=== PATIENT | male | born 1980 | race American Indian/Alaskan Native ===

== ENCOUNTER 2017-07-17 12:23 | Inpatient (IN) | payer BC ==
[2017-07-17] MEDS ORDERED: NACL 0.9% 250ML 250 ML IV ONE (12:28)
[2017-07-17] MEDS ORDERED: ZOFRAN IV ONE (12:28)
[2017-07-17] MEDS ORDERED: PEPCID IV ONE (12:29)
--- NOTE | 2017-07-17 13:09 | XRay Report ---
AP CHEST: HISTORY: Short of breath There is moderate cardiomegaly and mild central pulmonary venous congestion which are new since the chest x-ray dated 11/26/15. The lungs are clear. No evidence for infiltrate, pleural effusion or pneumothorax. Single lead pacemaker devices unchanged. IMPRESSION: Cardiomegaly and pulmonary venous congestion.
[2017-07-17 13:15] LABS: Basophils % (Auto) 0.7 % (0.0-1.8); Eosinophils % (Auto) 0.4 % (0.0-4.3); Hematocrit 40.2 % (35.5-45.6); Hemoglobin 13.3 gm/dl (11.8-15.2); Lymphocytes # (Auto) 2.4 K/mm3 (1.2-5.4); Lymphocytes % (Auto) 45.1 % (13.4-35.0); Mean Corpuscular HGB Conc 33 % (32-34); Mean Corpuscular Volume 78 fl (84-94); Monocytes # (Auto) 0.5 K/mm3 (0.0-0.8); Monocytes % (Auto) 9.4 % (0.0-7.3); Platelet Count 180 K/mm3 (140-440); Red Blood Count 5.18 M/mm3 (3.65-5.03); Red Cell Distribution Width 18.1 % (13.2-15.2)
[2017-07-17 13:17] LABS: Mean Corpuscular Hemoglobin 26 pg (28-32)
[2017-07-17 13:24] LABS: BUN/Creatinine Ratio 14; Blood Urea Nitrogen 14 mg/dL (9-20)
[2017-07-17 13:25] LABS: Alanine Aminotransferase 15 units/L (7-56); Albumin 3.8 g/dL (3.9-5); Calcium 8.5 mg/dL (8.4-10.2); Hemolysis Index 4; Lipase 23 units/L (13-60)
[2017-07-17 13:29] LABS: INR 1.13 (0.87-1.13)
[2017-07-17 13:30] LABS: Partial Thromboplastin Time 35.4 Sec. (24.2-36.6)
--- NOTE | 2017-07-17 13:38 | Emergency Department Report ---
ED N/V/D HPI - General Chief complaint: Dizziness Stated complaint: DIZZINESS Time Seen by Provider: 07/17/17 12:27 Source: patient, old records reviewed (cta chest neg for pe 07/01/17. EF 25-30% with grad 2 diasolic dysfunction. Severe LA enlargement, moderate LV enlargement, see report for other findings) Mode of arrival: Wheelchair Limitations: No Limitations - History of Present Illness Initial comments: 36-year-old male with past medical history CHF/nonischemic cardiomyopathy, AICD (currently disabled as per medical record), hypertension, and recent admission with laparoscopic cholecystectomy performed here on July 03 presents to the hospital with complaints of nausea, vomiting, intermittent abdominal pain, shortness of breath. Patient was sent by the surgeon DR Muñiz from the office after he was noted to be short of breath and hypotensive dye his follow-up office visit. Initially his pressure was 90/58 and systolic dropped down to 74 with a heart rate in the 120s. Patient has had nausea, vomiting, with decreased by mouth tolerance for the past 4 days. Patient initially vomiting up yellow vomitus that then became more brown in color. Patient is able to tolerate his medication including a dose of Lasix today but not able to drink much fluids or tolerate much food. He complains of intermittent generalized crampy abdominal pain that is currently absent with no aggravating or alleviating factors reported. Denies diarrhea, melena, hematochezia, fever, current antibiotic use, sick contacts, or recent travel. Patient developed shortness of breath while sleeping and during exertion since last night. No chest pain reported. - Related Data Home Medications Medication Instructions Recorded Confirmed Last Taken Digoxin [Lanoxin] 0.125 mg PO DAILY 05/18/13 07/03/17 07/11/14 19:00 Previous Rx's Medication Instructions Recorded Last Taken Type Carvedilol [Coreg] 12.5 mg PO BID #60 tablet 07/04/17 Unknown Rx Cyclobenzaprine [Flexeril 10 MG 10 mg PO TID PRN #30 tablet 07/04/17 Unknown Rx TAB] Furosemide [Lasix TAB] 40 mg PO QDAY #30 tablet 07/04/17 Unknown Rx Indomethacin [Indocin] 50 mg PO Q8HR #30 capsule 07/04/17 Unknown Rx Losartan [Cozaar] 50 mg PO QDAY #30 tablet 03/07/18 Unknown Rx Spironolactone [Aldactone] 25 mg PO QDAY #30 tablet 07/04/17 Unknown Rx traMADol [Ultram 50 MG tab] 50 mg PO Q6HR PRN #20 tablet 07/04/17 Unknown Rx Allergies Allergy/AdvReac Type Severity Reaction Status Date / Time Penicillins Allergy Unknown Verified 07/17/17 12:30 ED Review of Systems ROS: Stated complaint: DIZZINESS Other details as noted in HPI Comment: All other systems reviewed and negative Other: Constitutional: No fevers chills Eyes: No eye pain visual changes or discharge ENT: No ear pain or throat pain Neck: Denies pain Respiratory: As per HPI Cardiovascular: Denies chest pain, palpitations, syncope GI: As per HPI : Denies dysuria Musculoskeletal: Denies back pain, joint swelling Skin: Denies rash, lesions, erythema Neurologic: Denies headache, numbness, weakness Psychiatric: Denies suicidal ideation, hallucinations Hematological/lymphatic: Denies easy bruising, lymphadenopathy ED Past Medical Hx - Past Medical History Hx Hypertension: No Hx Congestive Heart Failure: Yes Hx Diabetes: No Hx Arthritis: Yes (gout) Hx Dementia: No Additional medical history: non ischemic cardiomyopathy - Surgical History Hx Internal Defibrillator: Yes (06/2017) Additional Surgical History: defibrillator - Social History Smoking Status: Never Smoker Substance Use Type: None - Medications Home Medications: Home Medications Medication Instructions Recorded Confirmed Last Taken Type Digoxin [Lanoxin] 0.125 mg PO DAILY 05/18/13 07/03/17 07/11/14 19:00 History Carvedilol [Coreg] 12.5 mg PO BID #60 tablet 07/04/17 Unknown Rx Cyclobenzaprine [Flexeril 10 MG 10 mg PO TID PRN #30 tablet 07/04/17 Unknown Rx TAB] Furosemide [Lasix TAB] 40 mg PO QDAY #30 tablet 07/04/17 Unknown Rx Indomethacin [Indocin] 50 mg PO Q8HR #30 capsule 07/04/17 Unknown Rx Losartan [Cozaar] 50 mg PO QDAY #30 tablet 07/04/17 Unknown Rx Spironolactone [Aldactone] 25 mg PO QDAY #30 tablet 07/04/17 Unknown Rx traMADol [Ultram 50 MG tab] 50 mg PO Q6HR PRN #20 tablet 07/04/17 Unknown Rx ED Physical Exam - General Limitations: No Limitations - Other Other exam information: General: No limitations, patient is alert in no acute distress Head exam: Atraumatic, normocephalic Eyes exam: Normal appearance, nonicteric sclera ENT: Dry mucous membrane Neck exam: Normal inspection Respiratory exam: No Rales or accessory muscle Cardiovascular: Tachycardic regular rhythm Abdomen: Soft, nondistended, postop laparoscopic scars noted. No signs of infection. Mild periumbilical tenderness, with normal bowel sounds, no rebound , or guarding Extremity: Full range of motion normal inspection no deformity Back: Normal Inspection, full range of motion, no tenderness Neurologic: Alert, oriented x3, cranial nerves intact, no motor or sensory deficit Psychiatric: normal affect, normal mood Skin: Warm, dry, intact ED Course Vital Signs 07/17/17 07/17/17 07/17/17 12:30 13:24 13:30 Temperature 98.2 F Pulse Rate 124 H 65 80 Respiratory 20 18 20 Rate Blood Pressure 108/65 100/64 O2 Sat by Pulse 100 95 99 Oximetry - Reevaluation(s) Reevaluation #1: 07/17/17 13:49 Heart rate 80 after receiving 250 normal saline bolus. EKG will be repeated - Consultations Consultation #1: 07/17/17 13:40 Case discussed with Nova More with cardiology [facility]. Will evaluate patient ED Medical Decision Making - Lab Data Result diagrams: 07/17/17 12:50 07/17/17 12:50 Lab Results 07/17/17 07/17/17 07/17/17 Range/Units 12:50 12:50 12:50 WBC 5.3 (4.5-11.0) K/mm3 RBC 5.18 H (3.65-5.03) M/mm3 Hgb 13.3 (11.8-15.2) gm/dl Hct 40.2 (35.5-45.6) % MCV 78 L (84-94) fl MCH 26 L (28-32) pg MCHC 33 (32-34) % RDW 18.1 H (13.2-15.2) % Plt Count 180 (140-440) K/mm3 Lymph % (Auto) 45.1 H (13.4-35.0) % [place] % (Auto) 9.4 H (0.0-7.3) % Eos % (Auto) 0.4 (0.0-4.3) % Baso % (Auto) 0.7 (0.0-1.8) % Lymph # 2.4 (1.2-5.4) K/mm3 [place] # 0.5 (0.0-0.8) K/mm3 Eos # 0.0 (0.0-0.4) K/mm3 Baso # 0.0 (0.0-0.1) K/mm3 Seg Neutrophils % 44.4 (40.0-70.0) % Seg Neutrophils # 2.4 (1.8-7.7) K/mm3 PT 15.1 H (12.2-14.9) Sec. INR 1.13 (0.87-1.13) APTT 35.4 (24.2-36.6) Sec. Sodium 138 (137-145) mmol/L Potassium 4.3 (3.6-5.0) mmol/L Chloride 99.7 (98-107) mmol/L Carbon Dioxide 25 (22-30) mmol/L Anion Gap 18 mmol/L BUN 14 (9-20) mg/dL Creatinine 1.0 (0.8-1.5) mg/dL Estimated GFR > 60 ml/min BUN/Creatinine Ratio 14 % Glucose 93 (75-100) mg/dL Calcium 8.5 (8.4-10.2) mg/dL Total Bilirubin 1.10 (0.1-1.2) mg/dL AST 32 (5-40) units/L ALT 15 (7-56) units/L Alkaline Phosphatase 36 (35-129) units/L NT-Pro-B Natriuret Pep 2721 H (0-450) pg/mL Total Protein 7.4 (6.3-8.2) g/dL Albumin 3.8 L (3.9-5) g/dL Albumin/Globulin Ratio 1.1 % Lipase 23 (13-60) units/L - EKG Data -: EKG Interpreted by Me (prolonged TX interval) EKG shows normal: axis (-12), QRS complexes (113), ST-T waves (lateral T-wave inversion. No ST elevation HI) Rate: tachycardia (124 junctional tachy) - EKG Data When compared to previous EKG there are: changes noted (sinus previous) 07/17/17 13:56 Repeat EKG reveals sinus rhythm with persistent lateral T-wave inversions Rate 81 - Radiology Data Radiology results: report reviewed (read by radiologist, CXR: cardiomegaly and pulmonary venous congestion) - Medical Decision Making Patient treated with Zofran. Heart rate improved with the ns 250 normal saline bolus. Case discussed with cardiology. We'll admit for CHF exacerbation with N /v. Abdomen nontender Junctional rhythm has resolved a repeat EKG and now reveals sinus with prolonged TX - Differential Diagnosis gastritis, pancreatitis, CHF, PE, infection Critical Care Time: No Critical care attestation.: If time is entered above; I have spent that time in minutes in the direct care of this critically ill patient, excluding procedure time. ED Disposition Clinical Impression: ICD (implantable cardioverter-defibrillator) in place, Dilated cardiomyopathy, CHF exacerbation, Nausea & vomiting, Hx of cholecystectomy Disposition: OP ADMIT IP TO THIS HOSP Is pt being admited?: Yes Condition: Stable Time of Disposition: 13:51 (Dr Calvo/hosp)
--- NOTE | 2017-07-17 14:00 | History and Physical Report ---
History of Present Illness Chief complaint: I feel sick History of present illness: 36 YO Male with Systolic CHF(EF 31%), Obesity, HTN, Gout presents to ED for evaluation. Pt states that he has experienced shortness of breath for the past 3 days with persistent symptoms over the same time period. Pt seen by his surgeon today in the office, and was found to be hypotensive, tachycardic with heart rate around 120, as well as short of breath. Pt instructed to present to ED for evaluation. Pt transported to ED by family. Pt seen and evaluated in ED and found to have evidence of CHF Decompensation. Pt acknowledges orthopnea, PND, bilateral leg swelling, decreased oral intake, and decreased exercise tolerance over the past week. Pt denies fever, chills, CP, Palpitations, syncope , BRBPR, melena, Hemopthsis, trauma, skin rash, productive cough, or recent ill contacts. Pt admitted to telemetry, Cardiology consulted in ED. Past History Past Medical History: heart failure, other (gout, obesity) Past Surgical History: Other (ICD Placement) Social history: single. denies: smoking, alcohol abuse, prescription drug abuse Family history: no significant family history Medications and Allergies Allergies Allergy/AdvReac Type Severity Reaction Status Date / Time Penicillins Allergy Unknown Verified 07/17/17 12:30 Home Medications Medication Instructions Recorded Confirmed Last Taken Type Digoxin [Lanoxin] 0.125 mg PO DAILY 05/18/13 07/17/17 07/11/14 19:00 History Carvedilol [Coreg] 12.5 mg PO BID #60 tablet 07/04/17 07/17/17 Unknown Rx Cyclobenzaprine [Flexeril 10 MG 10 mg PO TID PRN #30 tablet 07/04/17 07/17/17 Unknown Rx TAB] Furosemide [Lasix TAB] 40 mg PO QDAY #30 tablet 07/04/17 07/17/17 Unknown Rx Indomethacin [Indocin] 50 mg PO Q8HR #30 capsule 07/04/17 07/17/17 Unknown Rx Losartan [Cozaar] 50 mg PO QDAY #30 tablet 07/04/17 07/17/17 Unknown Rx Spironolactone [Aldactone] 25 mg PO QDAY #30 tablet 07/04/17 07/17/17 Unknown Rx traMADol [Ultram 50 MG tab] 50 mg PO Q6HR PRN #20 tablet 07/04/17 07/17/17 Unknown Rx Review of Systems Constitutional: no weight loss, no weight gain, no fever, no chills Ears, nose, mouth and throat: no ear pain, no ear discharge, no tinnitis, no decreased hearing, no nose pain Cardiovascular: orthopnea, shortness of breath, paroxysmal nocturnal dyspnea, leg edema, no chest pain Respiratory: no cough, no cough with sputum, no excessive sputum Gastrointestinal: no nausea, no vomiting, no diarrhea, no constipation Genitourinary Male: no hematuria, no flank pain, no discharge, no urinary frequency, no urinary hesitancy, no nocturia Rectal: no pain, no incontinence, no bleeding Musculoskeletal: no neck stiffness, no neck pain, no shooting arm pain, no arm numbness/tingling, no low back pain, no shooting leg pain Integumentary: no rash, no pruritis, no redness, no sores Neurological: no transient paralysis, no paralysis, no weakness, no parathesias , no numbness, no tingling, no seizures, no syncope Psychiatric: no anxiety, no memory loss, no change in sleep habits, no sleep disturbances, no insomnia, no hypersomnia, no change in appetite, no change in libido Endocrine: no cold intolerance, no heat intolerance, no polyphagia, no excessive thirst, no polydipsia, no polyuria, no nocturia, no excessive sweating Hematologic/Lymphatic: no easy bruising, no easy bleeding, no lymphadenopathy, no lymphedema Allergic/Immunologic: no urticaria, no allergic rhinitis, no wheezing Exam - Constitutional Vitals: Temp Pulse Resp BP Pulse Ox 98.2 F 80 20 100/64 99 07/17/17 12:30 07/17/17 13:30 07/17/17 13:30 07/17/17 13:30 07/17/17 13:30 General appearance: Present: mild distress - EENT Eyes: Present: PERRL ENT: hearing intact, clear oral mucosa - Neck Neck: Present: supple, normal ROM - Respiratory Respiratory effort: labored Respiratory: bilateral: diminished, rales - Cardiovascular Heart Sounds: Present: S1 & S2. Absent: rub, click - Extremities Extremities: pulses symmetrical, No edema Extremity abnormal: edema Peripheral Pulses: within normal limits - Abdominal General gastrointestinal: Present: soft, non-tender, non-distended, normal bowel sounds Male genitourinary: Present: normal - Integumentary Integumentary: Present: clear, warm, dry - Musculoskeletal Musculoskeletal: generalized weakness - Psychiatric Psychiatric: appropriate mood/affect, intact judgment & insight - Neurologic Neurologic: CNII-XII intact, moves all extremities Results - Labs CBC & Chem 7: 07/17/17 12:50 07/17/17 12:50 Labs: Abnormal lab results 07/17/17 07/17/17 07/17/17 Range/Units 12:50 12:50 12:50 RBC 5.18 H (3.65-5.03) M/mm3 MCV 78 L (84-94) fl MCH 26 L (28-32) pg RDW 18.1 H (13.2-15.2) % Lymph % (Auto) 45.1 H (13.4-35.0) % [place] % (Auto) 9.4 H (0.0-7.3) % PT 15.1 H (12.2-14.9) Sec. NT-Pro-B Natriuret Pep 2721 H (0-450) pg/mL Albumin 3.8 L (3.9-5) g/dL Assessment and Plan - Patient Problems (1) CHF exacerbation Current Visit: Yes Status: Acute Qualifiers: Heart failure type: systolic Qualified Code(s): I50.23 - Acute on chronic systolic (congestive) heart failure Plan to address problem: Afterload reduction, cardiology consulted in ED, Admit to telemetry, strict I/O , monitor uop q shift, diuresis, d dimer, CTA chest, (2) Acute respiratory failure Current Visit: Yes Status: Acute Qualifiers: Respiratory failure complication: hypoxia Qualified Code(s): J96.01 - Acute respiratory failure with hypoxia Plan to address problem: Supplemental oxygen, nebs, d dimer, CTA chest, NIPPV as clinically indicated. (3) Gout Current Visit: Yes Status: Chronic Plan to address problem: continue current care, no acute exacerbation at this time. (4) Obesity Current Visit: Yes Status: Acute Qualifiers: Obesity type: due to excess calories Plan to address problem: increased physical activity, balanced diet, (5) DVT prophylaxis Current Visit: Yes Status: Acute Plan to address problem: SCD to BLE while in bed,
[2017-07-17] MEDS ORDERED: ULTRAM PO PRN (14:01)
[2017-07-17] MEDS ORDERED: TYLENOL PO PRN (14:02)
[2017-07-17] MEDS ORDERED: ZOFRAN IV PRN (14:02)
[2017-07-17] MEDS ORDERED: SODIUM CHLORIDE FLUSH SYRINGE 10 ML IV PRN (14:02)
[2017-07-17] MEDS ORDERED: PROVENTIL IH PRN (14:02)
[2017-07-17] MEDS ORDERED: FLEXERIL PO PRN (14:30)
--- NOTE | 2017-07-17 18:03 | Cat Scan Report ---
FINAL REPORT EXAM: CT ANGIO CHEST HISTORY: dypsnea TECHNIQUE: CTA of the chest was performed after the administration of intravenous contrast. Reconstructions were included in the coronal and sagittal planes. Rotating MIPS were included. PRIORS: CTA of the chest from 07/01/2017. FINDINGS: Pulmonary arteries and thoracic aorta: The study is adequate for diagnostic purposes. No central or segmental pulmonary embolism. The thoracic aorta is normal in caliber. Lungs and airways: No pleural effusion. Mild bilateral dependent atelectasis is seen. There is a focal rounded patchy area of ground-glass in the anterior aspect of the left lung apex. The airways are patent. No bronchiectasis. No pulmonary nodules or masses. Mediastinum, heart, pericardium: No mediastinal lymphadenopathy. Unchanged multi chamber cardiac enlargement. Unchanged left chest AICD. No pericardial effusion. Thoracic inlet, chest wall, axilla: No chest wall masses. The visualized portions of the thyroid gland demonstrate no focal lesion. Bilateral axillary lymph nodes are likely reactive. Upper abdomen: Post cholecystectomy. Bones: No acute or chronic osseous finding. IMPRESSION: 1. No central or segmental pulmonary embolism. 2. Unchanged multi chamber cardiac enlargement. 3. Small rounded focal ground-glass opacity in the anterior aspect of the left upper lobe may represent a focus of inflammation or infection. Recommend follow-up chest CT 3-6 months to confirm resolution.
[2017-07-17] MEDS: COREG PO SCH (21:50)
[2017-07-17] MEDS: SODIUM CHLORIDE FLUSH SYRINGE 10 ML IV SCH (21:56)
[2017-07-17] MEDS: INDOCIN PO SCH (22:07)
[2017-07-17] MEDS: LASIX IV SCH (22:08)
[2017-07-18] MEDS: INDOCIN PO SCH ×2 (05:15→05:16)
[2017-07-18] MEDS: LASIX IV SCH (05:15)
[2017-07-18] MEDS: COREG PO SCH (09:01)
[2017-07-18] MEDS: SODIUM CHLORIDE FLUSH SYRINGE 10 ML IV SCH (09:02)
--- NOTE | 2017-07-18 09:02 | Consultation ---
History of Present Illness Consult date: 07/18/17 Requesting physician: YAHIR LOCKHART Consult reason: congestive heart failure History of present illness: The patient is a 36 year old male who is followed by Dr. Resendez in the office with a history of dilated NICMP, AICD in situ (at [facility] and currently deactivated) , HTN, gout who was at his surgeon's office for a follow up appointment yesterday and his blood pressure was 90/58 initially but dropped to 74 systolic with a heart rate in the 120s and was referred to the ER for further evaluation. Initially he had complaints of nausea, dizziness and shortness of breath. No chest pain. He is s/p laparoscopic cholecystectomy on 07/03/17. D- dimer elevated but chest CTA negative for PE. BNP 2721. Echo done 02/2014 showed EF 35-40%, mild LVH, restrictive diastolic filling, RV mildly dilated, pacemaker in RV, LA enlarged, minimal MR, mild TR. Currently he states his shortness of breath has resolved. Past History Past Medical History: heart failure, hypertension, other (gout, obesity, NICMP) Past Surgical History: cholecystectomy, Other (ICD Placement) Social history: single. denies: smoking, alcohol abuse, prescription drug abuse Family history: no significant family history Medications and Allergies Allergies Allergy/AdvReac Type Severity Reaction Status Date / Time Penicillins Allergy Unknown Verified 07/17/17 12:30 Home Medications Medication Instructions Recorded Confirmed Last Taken Type Digoxin [Lanoxin] 0.125 mg PO DAILY 05/18/13 07/17/17 07/11/14 19:00 History Carvedilol [Coreg] 12.5 mg PO BID #60 tablet 07/04/17 07/17/17 Unknown Rx Cyclobenzaprine [Flexeril 10 MG 10 mg PO TID PRN #30 tablet 07/04/17 07/17/17 Unknown Rx TAB] Furosemide [Lasix TAB] 40 mg PO QDAY #30 tablet 07/04/17 07/17/17 Unknown Rx Indomethacin [Indocin] 50 mg PO Q8HR #30 capsule 07/04/17 07/17/17 Unknown Rx Losartan [Cozaar] 50 mg PO QDAY #30 tablet 07/04/17 07/17/17 Unknown Rx Spironolactone [Aldactone] 25 mg PO QDAY #30 tablet 07/04/17 07/17/17 Unknown Rx traMADol [Ultram 50 MG tab] 50 mg PO Q6HR PRN #20 tablet 07/04/17 07/17/17 Unknown Rx Active Meds: Active Medications Acetaminophen (Tylenol) 650 mg PO Q4H PRN PRN Reason: Pain MILD(1-3)/Fever >100.5/CLEANING Albuterol (Proventil) 2.5 mg IH Q4HRT PRN PRN Reason: Shortness Of Breath Carvedilol (Coreg) 12.5 mg PO BID [facility] Last Admin: 07/17/17 21:50 Dose: 12.5 mg Cyclobenzaprine HCl (Flexeril) 10 mg PO TID PRN PRN Reason: Muscle Spasm Digoxin (Lanoxin) 0.125 mg PO DAILY [facility] Furosemide (Lasix) 20 mg IV BID@0600,1800 [facility] Last Admin: 07/18/17 05:15 Dose: 20 mg Indomethacin (Indocin) 50 mg PO Q8HR [facility] Last Admin: 07/18/17 05:16 Dose: Not Given Losartan Potassium (Cozaar) 50 mg PO QDAY [facility] Ondansetron HCl (Zofran) 4 mg IV Q8H PRN PRN Reason: Nausea And Vomiting Sodium Chloride (Sodium Chloride Flush Syringe 10 Ml) 10 ml IV BID [facility] Last Admin: 07/17/17 21:56 Dose: 10 ml Sodium Chloride (Sodium Chloride Flush Syringe 10 Ml) 10 ml IV PRN PRN PRN Reason: LINE FLUSH Spironolactone (Aldactone) 25 mg PO QDAY [facility] Tramadol HCl (Ultram) 50 mg PO Q6HR PRN PRN Reason: Pain Review of Systems Constitutional: no fever, no chills Ears, nose, mouth and throat: no nasal congestion, no nasal discharge, no sinus pressure Cardiovascular: shortness of breath Gastrointestinal: nausea, no abdominal pain, no vomiting, no diarrhea Genitourinary Male: no dysuria, no hematuria Musculoskeletal: no neck stiffness, no neck pain, no myalgias Integumentary: no rash, no pruritis Neurological: no parathesias, no numbness, no tingling, no headaches Endocrine: no cold intolerance, no heat intolerance Hematologic/Lymphatic: no easy bruising, no easy bleeding Allergic/Immunologic: no urticaria, no wheezing Physical Examination Vital Signs Temp Pulse Resp BP Pulse Ox 98.2 F 124 H 20 108/65 100 07/17/17 12:30 07/17/17 12:30 07/17/17 12:30 07/17/17 12:30 07/17/17 12:30 General appearance: no acute distress HEENT: Positive: Normocephaly, Mucus Membranes Moist Neck: Positive: neck supple, trachea midline Cardiac: Positive: Reg Rate and Rhythm, S1/S2, Systolic Murmur Lungs: Positive: clear to auscultation Neuro: Positive: Grossly Intact Abdomen: Positive: Soft, Active Bowel Sounds. Negative: Tender Skin: Positive: Clear. Negative: Rash Extremities: Present: normal. Absent: edema Results 07/17/17 12:50 07/17/17 12:50 Cardiac Enzymes 07/17/17 Range/Units 12:50 AST 32 (5-40) units/L Coagulation 07/17/17 Range/Units 12:50 PT 15.1 H (12.2-14.9) Sec. INR 1.13 (0.87-1.13) APTT 35.4 (24.2-36.6) Sec. CBC 07/17/17 Range/Units 12:50 WBC 5.3 (4.5-11.0) K/mm3 RBC 5.18 H (3.65-5.03) M/mm3 Hgb 13.3 (11.8-15.2) gm/dl Hct 40.2 (35.5-45.6) % Plt Count 180 (140-440) K/mm3 Lymph # 2.4 (1.2-5.4) K/mm3 [place] # 0.5 (0.0-0.8) K/mm3 Eos # 0.0 (0.0-0.4) K/mm3 Baso # 0.0 (0.0-0.1) K/mm3 Comprehensive Metabolic Panel 07/17/17 Range/Units 12:50 Sodium 138 (137-145) mmol/L Potassium 4.3 (3.6-5.0) mmol/L Chloride 99.7 (98-107) mmol/L Carbon Dioxide 25 (22-30) mmol/L BUN 14 (9-20) mg/dL Creatinine 1.0 (0.8-1.5) mg/dL Glucose 93 (75-100) mg/dL Calcium 8.5 (8.4-10.2) mg/dL AST 32 (5-40) units/L ALT 15 (7-56) units/L Alkaline Phosphatase 36 (35-129) units/L Total Protein 7.4 (6.3-8.2) g/dL Albumin 3.8 L (3.9-5) g/dL - Imaging and Cardiology Echo: report reviewed (02/2014: EF 35-40%, mild LVH, restrictive diastolic filling, RV mildly dilated, pacemaker in RV, LA enlarged, minimal MR, mild TR ) EKG: image reviewed EKG interpretations - Telemetry EKG Rhythm: Sinus Rhythm - EKG Sinus rhythms and dysrhythmias: sinus rhythm Repolarization changes or abnormalities: nonspecific abnormality, ST segment, and/or T wave Assessment and Plan Assessment: Acute on chronic systolic heart failure Dilated NICMP AICD in situ -device at [facility] and currently deactivated Elevated DDimer - Chest CTA negative for PE S/p laparoscopic cholecystectomy 07/03/17 HTN Plan: Clinically improving. Agree with current regimen. Will obtain echocardiogram as patient has not had one since 2013. Patient continues to decline [employer] but states that he will follow up with EP as an outpatient regarding generator exchange. Follow up appointment with Dr. Resendez in the [place] office on 07/25/17 at 1:00 pm. The patient has been seen in conjunction with Dr. Shi who agrees with the assessment and plan of care.
[2017-07-18 09:34] VITALS: BP 105/74
[2017-07-18] MEDS ORDERED: ALDACTONE PO SCH (10:00)
[2017-07-18] MEDS ORDERED: COZAAR PO SCH (10:00)
[2017-07-18] MEDS ORDERED: LANOXIN PO SCH (10:00)
[2017-07-18] MEDS ORDERED: COLCRYS PO SCH (11:00)
--- NOTE | 2017-07-18 11:45 | Discharge Summary ---
Providers - Providers Date of Admission: 07/17/17 14:02 Attending physician: FORREST FORBES MD 07/17/17 13:40 Consult to Physician [CONS] Urgent Comment: Consulting Provider: JC MENDEZ Physician Instructions: Reason For Exam: chf exacerbation, n,v, postop Primary care physician: LILIANA BALIEY MD Hospitalization Condition: Stable Hospital course: 36 YO Male with Systolic CHF(EF 31%), Obesity, HTN, Gout presents to ED for evaluation. Pt states that he has experienced shortness of breath for the past 3 days with persistent symptoms over the same time period. Pt seen by his surgeon today in the office, and was found to be hypotensive, tachycardic with heart rate around 120, as well as short of breath. Pt instructed to present to ED for evaluation. Pt transported to ED by family. Pt seen and evaluated in ED and found to have evidence of CHF Decompensation. Pt acknowledges orthopnea, PND, bilateral leg swelling, decreased oral intake, and decreased exercise tolerance over the past week. Pt denies fever, chills, CP, Palpitations, syncope , BRBPR, melena, Hemopthsis, trauma, skin rash, productive cough, or recent ill contacts. Pt admitted to telemetry, Cardiology consulted in ED. Disposition: DC-01 TO HOME OR SELFCARE Exam - Constitutional Vitals: Temp Pulse Resp BP Pulse Ox 97.3 F L 68 18 105/74 99 07/18/17 09:33 07/18/17 09:33 07/18/17 09:33 07/18/17 09:33 07/18/17 11:36 Plan Activity: advance as tolerated, fall precautions Diet: low salt Special Instructions: record daily BP diary Follow up with: LILIANA BAILEY MD [Primary Care Provider] - 3-5 Days BINA ANNE MD [Staff Physician] - 7 Days
== END 2017-07-18 13:45 | disposition home or self-care (01) | DRG 291 ==
LOC: ED 12:23 → 4A 14:02
PROVIDERS: ADMIT Internal Medicine; ATTEND Internal Medicine
DX: I11.0 Hypertensive heart disease with heart failure (principal); J96.01 Acute respiratory failure with hypoxia; I50.23 Acute on chronic systolic (congestive) heart failure; I42.0 Dilated cardiomyopathy; M10.9 Gout, unspecified; E66.9 Obesity, unspecified; I95.9 Hypotension, unspecified; Z95.810 Presence of automatic (implantable) cardiac defibrillator; Z88.0 Allergy status to penicillin; Z90.49 Acquired absence of other specified parts of digestive tract
CPT/HCPCS: 36415; 71045; 71275; 80053; 80162; 83690; 83880; 85025; 85379; 85610; 85730; 93005; 93010; 93970; 94760; 96374; 96375; J1940; J2405; J7050; Q9967

== ENCOUNTER 2018-01-20 00:07 | Emergency (ER) | payer BC ==
[2018-01-20] MEDS ORDERED: TYLENOL PO ONE (01:40)
[2018-01-20 02:05] LABS: Basophils # (Auto) 0.1 K/mm3 (0.0-0.1); Basophils % (Auto) 0.9 % (0.0-1.8); Eosinophils # (Auto) 0.1 K/mm3 (0.0-0.4); Eosinophils % (Auto) 1.2 % (0.0-4.3); Hematocrit 42.5 % (35.5-45.6); Hemoglobin 14.4 gm/dl (11.8-15.2); Lymphocytes # (Auto) 2.7 K/mm3 (1.2-5.4); Lymphocytes % (Auto) 43.3 % (13.4-35.0); Mean Corpuscular HGB Conc 34 % (32-34); Mean Corpuscular Hemoglobin 27 pg (28-32); Mean Corpuscular Volume 78 fl (84-94); Monocytes # (Auto) 0.7 K/mm3 (0.0-0.8); Platelet Count 216 K/mm3 (140-440); Red Blood Count 5.44 M/mm3 (3.65-5.03)
[2018-01-20 02:25] LABS: Alanine Aminotransferase 13 units/L (7-56)
[2018-01-20 03:30] LABS: BUN/Creatinine Ratio 18; Blood Urea Nitrogen 14 mg/dL (9-20); Calcium 8.7 mg/dL (8.4-10.2); Hemolysis Index 6
[2018-01-20 05:28] VITALS: BP 121/82
[2018-01-20] MEDS ORDERED: NORCO 5/325 PO ONE (09:21)
--- NOTE | 2018-01-20 09:24 | Emergency Department Report ---
Chief Complaint: Extremity Injury, Lower Stated Complaint: RT LEG PAIN Time Seen by Provider: 01/20/18 08:59 - HPI History of Present Illness: 37-year-old Nigerien male presents to the emergency department with complaint of a one-week history of right knee pain and swelling. He was previously seen at [facility] and allegedly had his knee drained at that time. The symptoms have not improved. He has tried some indomethacin for his discomfort without much relief. He has a past medical history of gout, CHF, hypertension, nonischemic cardiomyopathy. Patient presents with a low-grade fever and says that he has felt slightly feverish lately. He denies any cough, sore throat, shortness of breath, rash. No recent travel, immobility, surgery or any sick contacts at home. - ROS Review of Systems: Positive for right knee pain and swelling, fever Negative for shortness of breath, chest pain, back pain, nausea - Exam Vital Signs: Vital Signs 01/20/18 01/20/18 01:37 05:27 Temperature 100.2 F H 98.2 F Pulse Rate 88 82 Respiratory 18 20 Rate Blood Pressure 121/82 Blood Pressure 121/73 [Left] O2 Sat by Pulse 100 100 Oximetry Physical Exam: Right anterior knee is swollen. The patient has difficulty with full extension of the right knee. Negative anterior and posterior drawer test. No laxity with valgus or varus stress. Heart and lungs sounds are normal to auscultation. MSE screening note: Focused history and physical exam performed. Due to findings the following was ordered: I have added a uric acid level to the rest of the labs. CBC and BMP were unremarkable. He will have an x-ray of the right knee and a right lower extremity venous Doppler. He has been given a [place] for discomfort and previously was given some acetaminophen for his fever. ED Medical Decision Making - Lab Data Result diagrams: 01/20/18 01:47 01/20/18 01:47 ED Disposition for MSE Condition: Stable Referrals: PRIMARY CARE, [Primary Care Provider] - 3-5 Days
--- NOTE | 2018-01-20 10:15 | Emergency Department Report ---
ED Lower Extremity HPI - General Chief Complaint: Extremity Injury, Lower Stated Complaint: RT LEG PAIN Time Seen by Provider: 01/20/18 08:59 Source: patient, family Mode of arrival: Ambulatory Limitations: No Limitations - History of Present Illness Initial Comments: This is a 37-year-old male nontoxic, well nourished in appearance, no acute signs of distress presents to the ED with c/o of right knee pain and swelling 1 week. Patient stated he was seen in [facility] and allegedly has his knee drained at that time. Patient stated that symptoms has not improved. Patient denies following up with a orthopedic. Patient denies any trauma. Patient stated that he tried indomethacin with no significant relief. Patient denies any numbness, tingling, nausea, vomiting, chest pain, shortness of breath , headache, stiff neck. Patient stated had some fever this morning. Patient denies any joint redness. Patient denies decreased range of motion. Patient stated has decreased gait due to pain. Patient stated allergies to PCN. PMH includes gout, CHF, hypertension, MD Complaint: knee injury -: week(s) (1) Injury: Knee: Right Severity: mild Severity scale (0 -10): 8 Improves With: immobilization Worsens With: weight bearing, movement, palpation Associated Symptoms: swelling, able to partially bear weight, ambulatory. denies: snap/pop sensation, numbness, tingling, unable to bear weight - Related Data Home Medications Medication Instructions Recorded Confirmed Last Taken Digoxin [Lanoxin] 0.125 mg PO DAILY 05/18/13 07/17/17 07/11/14 19:00 Previous Rx's Medication Instructions Recorded Last Taken Type Carvedilol [Coreg] 12.5 mg PO BID #60 tablet 07/04/17 Unknown Rx Cyclobenzaprine [Flexeril 10 MG 10 mg PO TID PRN #30 tablet 07/04/17 Unknown Rx TAB] Furosemide [Lasix TAB] 40 mg PO QDAY #30 tablet 07/04/17 Unknown Rx Indomethacin [Indocin] 50 mg PO Q8HR #30 capsule 07/04/17 Unknown Rx Losartan [Cozaar] 50 mg PO QDAY #30 tablet 07/04/17 Unknown Rx Spironolactone [Aldactone] 25 mg PO QDAY #30 tablet 07/04/17 Unknown Rx traMADol [Ultram 50 MG tab] 50 mg PO Q6HR PRN #20 tablet 07/04/17 Unknown Rx Acetaminophen/Codeine [Tylenol 1 tab PO Q6H PRN #12 tab 01/20/18 Unknown Rx /Codeine # 3 tab] Ibuprofen [Motrin] 600 mg PO Q8H PRN #30 tablet 01/20/18 Unknown Rx Allergies Allergy/AdvReac Type Severity Reaction Status Date / Time Penicillins Allergy Unknown Verified 07/17/17 12:30 ED Review of Systems ROS: Stated complaint: RT LEG PAIN Other details as noted in HPI Constitutional: denies: chills, fever Eyes: denies: eye pain, eye discharge, vision change ENT: denies: ear pain, throat pain Respiratory: denies: cough, shortness of breath, wheezing Cardiovascular: denies: chest pain, palpitations Endocrine: no symptoms reported Gastrointestinal: denies: abdominal pain, nausea, diarrhea Genitourinary: denies: urgency, dysuria Musculoskeletal: arthralgia. denies: back pain, joint swelling Skin: denies: rash, lesions Neurological: denies: headache, weakness, paresthesias Psychiatric: denies: anxiety, depression Hematological/Lymphatic: denies: easy bleeding, easy bruising ED Past Medical Hx - Past Medical History Hx Hypertension: Yes Hx Congestive Heart Failure: Yes Hx Diabetes: No Hx Arthritis: Yes (gout) Hx Dementia: No Additional medical history: non ischemic cardiomyopathy - Surgical History Hx Open Heart Surgery: Yes Hx Internal Defibrillator: Yes (06/2017) Hx Cholecystectomy: Yes Additional Surgical History: defibrillator - Social History Smoking Status: Never Smoker Substance Use Type: None - Medications Home Medications: Home Medications Medication Instructions Recorded Confirmed Last Taken Type Digoxin [Lanoxin] 0.125 mg PO DAILY 05/18/13 07/17/17 07/11/14 19:00 History Carvedilol [Coreg] 12.5 mg PO BID #60 tablet 07/04/17 07/17/17 Unknown Rx Cyclobenzaprine [Flexeril 10 MG 10 mg PO TID PRN #30 tablet 07/04/17 07/17/17 Unknown Rx TAB] Furosemide [Lasix TAB] 40 mg PO QDAY #30 tablet 07/04/17 07/17/17 Unknown Rx Indomethacin [Indocin] 50 mg PO Q8HR #30 capsule 03/07/18 03/20/18 Unknown Rx Losartan [Cozaar] 50 mg PO QDAY #30 tablet 07/04/17 07/17/17 Unknown Rx Spironolactone [Aldactone] 25 mg PO QDAY #30 tablet 07/04/17 07/17/17 Unknown Rx traMADol [Ultram 50 MG tab] 50 mg PO Q6HR PRN #20 tablet 07/04/17 07/17/17 Unknown Rx Acetaminophen/Codeine [Tylenol 1 tab PO Q6H PRN #12 tab 01/20/18 Unknown Rx /Codeine # 3 tab] Ibuprofen [Motrin] 600 mg PO Q8H PRN #30 tablet 01/20/18 Unknown Rx ED Physical Exam - General Limitations: No Limitations General appearance: alert, in no apparent distress - Head Head exam: Present: atraumatic, normocephalic - Eye Eye exam: Present: normal appearance - ENT ENT exam: Present: normal exam, mucous membranes moist - Neck Neck exam: Present: normal inspection, full ROM. Absent: tenderness, meningismus, lymphadenopathy - Respiratory Respiratory exam: Present: normal lung sounds bilaterally. Absent: respiratory distress - Cardiovascular Cardiovascular Exam: Present: regular rate, normal rhythm. Absent: systolic murmur, diastolic murmur, rubs, gallop - GI/Abdominal GI/Abdominal exam: Present: soft, normal bowel sounds - Rectal Rectal exam: Present: deferred - Extremities Exam Extremities exam: Present: normal inspection, full ROM, tenderness, normal capillary refill, joint swelling. Absent: calf tenderness - Expanded Lower Extremity Exam Right Hip exam: Present: normal inspection, full ROM. Absent: tenderness, swelling Upper Leg exam: Present: normal inspection, full ROM. Absent: tenderness, swelling Knee exam: Present: normal inspection, full ROM, tenderness, swelling, full knee extension. Absent: abrasion, laceration, ecchymosis, deformity, crepidus, dislocation, erythema, effusion, pain w/ pronation/supination, posterior draw sign, pain/laxity with valgus, pain/laxity with varus Lower Leg exam: Present: normal inspection, full ROM. Absent: tenderness, swelling Ankle exam: Present: normal inspection, full ROM. Absent: tenderness, swelling Foot/Toe exam: Present: normal inspection, full ROM. Absent: tenderness, swelling Neuro vascular tendon exam: Present: no vascular compromise. Absent: pulse deficit, abnormal cap refill, motor deficit, sensory deficit, tendon deficit, extremity cold to touch, pallor, abnormal 2-point discrimination, decreased fine /light touch, foot drop, peroneal nerve deficit, significant pain with passive ROM of distal joint Gait: Positive: observed and limited by pain - Back Exam Back exam: Present: normal inspection, full ROM - Neurological Exam Neurological exam: Present: alert, oriented X3, normal gait - Psychiatric Psychiatric exam: Present: normal affect, normal mood - Skin Skin exam: Present: warm, dry, intact, normal color. Absent: rash ED Course Vital Signs 01/20/18 01/20/18 01:37 05:27 Temperature 100.2 F H 98.2 F Pulse Rate 88 82 Respiratory 18 20 Rate Blood Pressure 121/82 Blood Pressure 121/73 [Left] O2 Sat by Pulse 100 100 Oximetry - Reevaluation(s) Reevaluation #1: 01/20/18 10:17 Patient is speaking in full sentences with no signs of distress noted. - Consultations Consultation #1: 01/20/18 10:22 Patient has been consulted with Dr. Ibarra about patient history, physical exam, and labs/US doppler and examined and screened patient and agrees to ED plan of care. ED Lower Extremity MDM - Lab Data Result diagrams: 01/20/18 01:47 01/20/18 01:47 - Medical Decision Making This is a 37-year-old male that presents with right knee strain vs. gout. Patient is stable and was examined by me and Dr. Ibarra. I referred patient to an orthopedic doctor for further evaluation for possible MRI. X-ray has been obtained and dictated by the radiologist. Patient is notified of the x-ray report with noted by the patient. Negative doppler for DVT/SVT. Labs unremarkable. Elevated Uric acid. Patient does have normal gait with no tenderness. No ecchymosis. no joint redness or swelling. Not warm to touch. No signs of cellulites present. Patient received a knee mobilizer and crutches at discharge. Patient was educated by RN and use crutches. Patient was instructed to RICE therapy. Vital signs within normal limits. Patient is discharged with Motrin and and RTylenol with codeine. At time of discharge, the patient does not seem toxic or ill in appearance. No acute signs of distress noted. Patient agrees to discharge treatment plan of care. No further questions noted by the patient. Critical care attestation.: If time is entered above; I have spent that time in minutes in the direct care of this critically ill patient, excluding procedure time. ED Disposition Clinical Impression: Strain of right knee Qualifiers: Encounter type: initial encounter Qualified Code(s): S86.911A - Strain of unspecified muscle(s) and tendon(s) at lower leg level, right leg, initial encounter Disposition: TO HOME OR SELFCARE Is pt being admited?: No Does the pt Need Aspirin: No Condition: Stable Instructions: Acetaminophen/Codeine (By mouth), Crutch Instructions (ED), Knee Pain (ED), RICE Therapy (ED), Knee Immobilizer (ED) Additional Instructions: Follow-up with a orthopedic doctor in 3-5 days or if symptoms worsen and continue return to emergency room as soon as possible. Do not operate any machinery while taking Tylenol with codeine as this may cause drowsiness. Prescriptions: Acetaminophen/Codeine [Tylenol /Codeine # 3 tab] 1 tab PO Q6H PRN #12 tab PRN Reason: Pain , Severe (7-10) Ibuprofen [Motrin] 600 mg PO Q8H PRN #30 tablet PRN Reason: Pain Referrals: PRIMARY CAREMD [Primary Care Provider] - 3-5 Days LAURA BILLY MD [Staff Physician] - 3-5 Days [facility] [Outside] - 3-5 Days Forms: Work/School Release Form(ED)
--- NOTE | 2018-01-20 10:58 | XRay Report ---
FINAL REPORT EXAM: XR KNEE 3V RT HISTORY: right knee pain TECHNIQUE: Three views right knee. PRIORS: None currently available. FINDINGS: There is no acute fracture. There is no evidence for healing fracture. There is no acute dislocation. Mild narrowing suspected in the lateral tibial femoral compartment. No subchondral changes. No marginal osteophytes. Patellar enthesophyte. Small to moderate joint effusion. There is no cortical destruction to suggest osteomyelitis. There are no suspicious osseous lesions. There are no radiopaque foreign objects. IMPRESSION: No acute osseous findings. Joint effusion. Suspect chondromalacia or meniscal injury. Further evaluation with MRI may be helpful if clinically indicated.
--- NOTE | 2018-01-23 14:22 | Vascular Lab Report ---
Right Lower Extremity Venous Duplex Study: Reason for Exam: Pain and swelling of the right lower extremity. Comments on the Right: All veins visualized are freely compressible without evidence of internal echogenicity. Flow is spontaneous and phasic throughout. No evidence of acute or chronic thrombus is seen in any of the vessels visualized. A soft tissue change in the right knee area is consistent with a Avila's cyst. Comments on the Left: A limited duplex study was done of the proximal veins of the left lower extremity. All veins visualized are freely compressible without evidence of internal echogenicity. Flow is spontaneous and phasic throughout. No evidence of acute or chronic thrombus is seen in any of the vessels visualized. Impression: No evidence of acute or chronic deep venous thrombosis in the right lower extremity. A soft tissue change in the right knee area is consistent with a Avila's cyst.
== END 2018-01-20 11:34 | disposition home or self-care (01) ==
LOC: ED 00:07
DX: S86.911A Strain of unspecified muscle(s) and tendon(s) at lower leg level, right leg, initial encounter (principal); I11.0 Hypertensive heart disease with heart failure; I50.9 Heart failure, unspecified; M10.9 Gout, unspecified; Z90.49 Acquired absence of other specified parts of digestive tract; Z88.0 Allergy status to penicillin; X58.XXXA Exposure to other specified factors, initial encounter; Y93.89 Activity, other specified; Y92.89 Other specified places as the place of occurrence of the external cause; Y99.8 Other external cause status; Z95.810 Presence of automatic (implantable) cardiac defibrillator
CPT/HCPCS: 36415; 80053; 84550; 85025; 87040